=== PATIENT | female | born 1970 | race Two or more races ===

== ENCOUNTER 2024-09-19 16:43 | Emergency (ER) | payer OTHER ==
[~2024-09-19] VITALS: Ht 167.6 cm; Wt 69.9 kg
[2024-09-19] MEDS ORDERED: ONDANSETRON ODT 4 MG TAB.RAPDIS ONE (19:16)
[2024-09-19] MEDS ORDERED: BENZONATATE 100 MG CAPSULE ONE (19:16)
[2024-09-19] MEDS ORDERED: HYDROCODONE/APAP 5-325MG TABLET ONE (19:17)
[2024-09-19] MEDS: ONDANSETRON ODT 4 MG TAB.RAPDIS SL ONE (19:22)
[2024-09-19] MEDS: HYDROCODONE/APAP 5-325MG TABLET PO ONE (19:22)
[2024-09-19] MEDS: BENZONATATE 100 MG CAPSULE PO ONE (19:22)
[2024-09-19 19:29] LABS: BASOPHILS % (AUTO) 0.3 % (0.0-2.0); DIFFERENTIAL COMMENT 1; EOSINOPHILS % (AUTO) 0.2 % (0.0-7.0); HEMATOCRIT 41.3 % (31.2-41.9); HEMOGLOBIN 14.3 g/dL (10.9-14.3); LYMPHOCYTES # (AUTO) 1.1 K/uL (0.8-4.8); MEAN CORPUSCULAR HEMOGLOBIN 29.1 uug (24.7-32.8); MEAN CORPUSCULAR HGB CONC 35 g/dL (32.3-35.6); MONOCYTES # (AUTO) 0.9 K/uL (0.1-1.30); NEUTROPHILS # (AUTO) 10.3 K/uL (1.8-8.9); NEUTROPHILS % (AUTO) 83.5 % (38.5-71.5); PLATELET COUNT (AUTO) 165 K/uL (179-408); RED BLOOD CELL COUNT(AUTO) 4.91 MIL/uL (3.63-4.92); RED CELL DISTRIBUTION WIDTH 12.7 % (12.3-17.7); WHITE BLOOD COUNT (AUTO) 12.4 K/uL (3.8-11.8)
[2024-09-19 19:40] LABS: ALBUMIN 3.4 g/dL (3.4-5.0); BILIRUBIN,TOTAL 1.5 mg/dL (0.2-1.0); CALCIUM 8.9 mg/dL (8.5-10.1); CREATININE 0.6 mg/dL (0.6-1.3); TOTAL PROTEIN, SERUM 7.9 g/dL (6.4-8.2)
[2024-09-19] MEDS ORDERED: FLUT16SP BNOSTRILS (21:36)
[2024-09-19] MEDS ORDERED: D-ME473S47 PO (21:36)
[2024-09-19 21:44] VITALS: BP 138/76; O2SAT 92
== END 2024-09-19 21:44 | disposition home or self-care (01) ==
LOC: ER 16:44
DX: J22 Unspecified acute lower respiratory infection (principal); B97.89 Other viral agents as the cause of diseases classified elsewhere; H92.03 Otalgia, bilateral; M54.50 Low back pain, unspecified; R11.2 Nausea with vomiting, unspecified; R51.9 Headache, unspecified; E11.9 Type 2 diabetes mellitus without complications; I11.9 Hypertensive heart disease without heart failure; J45.909 Unspecified asthma, uncomplicated; Z20.822 Contact with and (suspected) exposure to COVID-19
CPT/HCPCS: 36415; 71046; 84484; 85025; A4606; A4663; Q0162

== ENCOUNTER 2024-09-22 18:33 | Emergency (ER) | payer OTHER ==
[~2024-09-22] VITALS: Ht 170.2 cm; Wt 69.4 kg
[~2024-09-22 18:33] MED LIST: D-ME473S47 PO; FLUT16SP BNOSTRILS
[2024-09-22 20:33] LABS: BASOPHILS % (AUTO) 0.4 % (0.0-2.0); EOSINOPHILS # (AUTO) 0.2 K/uL (0.0-0.7); EOSINOPHILS % (AUTO) 1.9 % (0.0-7.0); HEMATOCRIT 39.5 % (31.2-41.9); HEMOGLOBIN 13.7 g/dL (10.9-14.3); LYMPHOCYTES # (AUTO) 1.5 K/uL (0.8-4.8); LYMPHOCYTES % (AUTO) 14.7 % (20.5-51.5); MEAN CORPUSCULAR HEMOGLOBIN 29.4 uug (24.7-32.8); MEAN CORPUSCULAR HGB CONC 35 g/dL (32.3-35.6); MEAN CORPUSCULAR VOLUME 84.4 fL (75.5-95.3); MONOCYTES # (AUTO) 0.7 K/uL (0.1-1.30); MONOCYTES % (AUTO) 6.4 % (0.0-11.0); NEUTROPHILS # (AUTO) 7.8 K/uL (1.8-8.9); NEUTROPHILS % (AUTO) 76.6 % (38.5-71.5); PLATELET COUNT (AUTO) 232 K/uL (179-408); RED BLOOD CELL COUNT(AUTO) 4.68 MIL/uL (3.63-4.92); RED CELL DISTRIBUTION WIDTH 12.7 % (12.3-17.7); WHITE BLOOD COUNT (AUTO) 10.2 K/uL (3.8-11.8)
[2024-09-22 20:34] LABS: DIFFERENTIAL COMMENT 1
[2024-09-22 20:44] LABS: CALCIUM 8.9 mg/dL (8.5-10.1); CARBON DIOXIDE 28 mmol/L (21-32); CHLORIDE 103 mmol/L (98-107); CREATININE 0.6 mg/dL (0.6-1.3); GLUCOSE 102 mg/dL (74-106); POTASSIUM 3.7 mmol/L (3.5-5.1); SODIUM SERUM 144 mmol/L (136-145); UREA NITROGEN, BLOOD 12 mg/dL (7-18)
[2024-09-22 20:57] LABS: ALANINE AMINOTRANSFERASE 92 U/L (14-59); ALKALINE PHOSPHATASE 180 U/L (50-136); ASPARTATE AMINOTRANSFERASE 63 U/L (15-37); BILIRUBIN,DIRECT 0.3 mg/dL (0.0-0.2); BILIRUBIN,TOTAL 0.6 mg/dL (0.2-1.0); NT-PRO BNP 213 pg/mL (0-125); TOTAL PROTEIN, SERUM 7.8 g/dL (6.4-8.2)
[2024-09-22] MEDS: IPRATROPIUM BROMIDE 0.5 MG/2.5 ML NEBU NEB ONE (22:00)
[2024-09-22] MEDS: ALBUTEROL SULFATE 2.5 MG/3 ML NEBU NEB ONE (22:00)
[2024-09-22] MEDS ORDERED: ALBUTEROL SULFATE 2.5 MG/3 ML NEBU ONE (22:08)
[2024-09-22] MEDS ORDERED: IPRATROPIUM BROMIDE 0.5 MG/2.5 ML NEBU ONE (22:08)
[2024-09-22] MEDS ORDERED: DEXAMETHASONE SOD PHOSPHATE 10 MG INJ ONE (22:09)
[2024-09-22] MEDS: DEXAMETHASONE SOD PHOSPHATE 4 MG INJ IV ONE (22:14)
[2024-09-23] MEDS ORDERED: CEFTRIAXONE /D5W 50ML IVPB **ER PYXIS IV ONE (00:18)
[2024-09-23] MEDS ORDERED: AZITHROMYCIN 250 MG TABLET ONE (00:18)
[2024-09-23] MEDS: CEFTRIAXONE 1 G in IV DEXTROSE 5% 50 ML IV ONE (00:22)
[2024-09-23] MEDS: AZITHROMYCIN 250 MG TABLET PO ONE (00:22)
[2024-09-23 00:53] VITALS: O2SAT 92
== END 2024-09-23 02:55 ==
LOC: ER 18:33
DX: J18.9 Pneumonia, unspecified organism (principal); J45.901 Unspecified asthma with (acute) exacerbation; I10 Essential (primary) hypertension; E11.9 Type 2 diabetes mellitus without complications; Z20.822 Contact with and (suspected) exposure to COVID-19; Z88.7 Allergy status to serum and vaccine
CPT/HCPCS: 99285; 71045; 96375; 80076; 80048; 83880; 85025; 84145; 85730; 87040 ×2; 84484; 36415; 93005; 83605; 96365; 87426; 94640; J1100; J0696; A4606; A4663; J3590; Q0144